=== PATIENT | female | born 1940 | race Caucasian/White ===

== ENCOUNTER → 2025-06-14 | Outpatient (CLI) | payer MEDICARE, MEDICAID, SELFPAY | END | disposition home or self-care (01) | LOC: SLDO 15:12 | PROVIDERS: PCP Internal Medicine; Referring Provider Internal Medicine; Visit Provider Internal Medicine | DX: N39.0 Urinary tract infection, site not specified (principal) | CPT/HCPCS: 87077; 87086; 87186 ==

== ENCOUNTER → 2025-06-28 | Outpatient (CLI) | payer MEDICARE, MEDICAID, SELFPAY ==
[2025-06-28 14:43] LABS: Basophils # (Auto) 0.1 Thou/mm3 (0.0-0.2); Basophils % (Auto) 1 % (0-2.5); Eosinophils # (Auto) 0.1 Thou/mm3 (0.0-0.5); Eosinophils % (Auto) 2 % (0-10); Hematocrit 38.9 % (36.0-46.0); Hemoglobin 13.4 g/dL (12.0-16.0); Immature Granulocytes Auto 0.01 Thou/mm3 (0.00-0.00); Lymphocytes # (Auto) 1.6 Thou/mm3 (1.0-4.8); Lymphocytes % (Auto) 33 % (10-50); Mean Corpuscular HGB Conc 34.4 g/dl (31.0-37.0); Mean Corpuscular Hemoglobin 31.9 pg (25.0-35.0); Mean Corpuscular Volume 93 fL (80-100); Monocytes # (Auto) 0.4 Thou/mm3 (0.0-0.8); Monocytes % (Auto) 9 % (0-12); Neutrophils # (Auto) 2.7 Thou/mm3 (1.8-7.7); Neutrophils % (Auto) 55 % (37-80); Nucleated Red Blood Cell # 0.00 Thou/mm3 (0.00-0.00); Nucleated Red Blood Cell % 0 /100 WBC (0); Platelet Count 141 Thou/mm3 (140-440); RDW Standard Deviation 45.3 fL (36.4-46.3); Red Blood Count 4.20 Miln/mm3 (4.00-5.20); White Blood Count 4.9 Thou/mm3 (3.6-11.0)
[2025-06-28 14:55] LABS: Glucose Estimated Average 91 mg/dL (80-131); Hemoglobin A1C 4.8 % Hgb (4.8-6.0)
[2025-06-28 14:58] LABS: Alanine Aminotransferase 13 U/L (10-49); Albumin, Serum 3.6 gm/dL (3.4-4.8); Albumin/Globulin Ratio 1.6 (1.2-2.2); Alkaline Phosphatase 110 U/L (46-116); Anion Gap 8 (7-16); Aspartate Amino Transferase 33 U/L (0-34); BUN/Creatinine Ratio 11 Ratio (12-20); Bilirubin,Total 1.2 mg/dL (0.3-1.2); Blood Urea Nitrogen 11 mg/dL (9-23); Calcium 9.5 mg/dL (8.3-10.6); Calcium (Corrected) 9.8 mg/dL (8.5-10.1); Carbon Dioxide 23.7 mMol/L (20.0-31.0); Cardiac Risk Estimate 3.2 RATIO (3.7-5.6); Chloride 109 mMol/L (98-107); Cholesterol 168 mg/dL (132-200); Creatinine (Component) 1.0 mg/dL (0.6-1.3); Globulin 2.3 gm/dL (2.3-3.5); Glucose 169 mg/dL (74-106); HDL Cholesterol 52 mg/dL (40-60); LDL Cholesterol,Calculated 99 mg/dL (0-130); Osmolality,Calculated 284 (275-295); Potassium 3.7 mMol/L (3.4-5.1); Sodium 141 mMol/L (136-145); Total Protein 5.9 gm/dL (5.7-8.2); Triglycerides 84 mg/dL (30-150); eGFR 55 See Note
[2025-06-28 14:59] LABS: Vitamin D 25 Hydroxy Total 105.7 ng/mL (7.3-40.2)
[2025-06-28 15:57] LABS: Collection Type, Urine Clean Catch
[2025-06-28 17:06] LABS: Amphetamine/Methamp Scrn,U Negative (Negative); Bacteria,Urine Rare; Barbiturate Screen,Urine Negative (Negative); Benzodiazepines Screen,Urine Negative (Negative); Benzoylecgonine Screen, Ur Negative (Negative); Bilirubin,Urine Negative (Negative); Blood,Urine 1+ (Negative); Clarity,Urine Clear (Clear/Hazy); Color,Urine Yellow (Lt Yel-Yel); Fentanyl Screen,Urine Negative (Negative); Glucose, Urine Negative (Negative); Hyaline Casts,Urine < 1 /hpf (0-1); Ketones,Urine Negative (Negative); Leukocyte Esterase,Urine Positive (Negative); Nitrite,Urine Negative (Negative); Opiate Screen,Urine Negative (Negative); PH,Urine 6.0 (5.0-7.0); Protein,Urine Negative (Neg - Trace); RBC,Urine 12 /hpf (0-3); Specific Gravity,Urine 1.019 (1.001-1.035); Squamous Epithelial Cell,Urine 1 /hpf (0-5); THC Screen,Urine Negative (Negative); Urobilinogen,Urine Negative mg/dL (0.0-1.0); WBC,Urine 12 /hpf (0-5)
[2025-06-28 17:08] LABS: Culture Indicated,Urine Yes
== END | disposition home or self-care (01) ==
LOC: COPL 12:52
PROVIDERS: PCP Internal Medicine; Referring Provider Internal Medicine; Visit Provider Internal Medicine
DX: Z00.01 Encounter for general adult medical examination with abnormal findings (principal); F41.9 Anxiety disorder, unspecified; E78.5 Hyperlipidemia, unspecified; E03.9 Hypothyroidism, unspecified; K21.9 Gastro-esophageal reflux disease without esophagitis; F33.9 Major depressive disorder, recurrent, unspecified; G47.00 Insomnia, unspecified; M15.0 Primary generalized (osteo)arthritis; F41.8 Other specified anxiety disorders; E55.9 Vitamin D deficiency, unspecified; N39.0 Urinary tract infection, site not specified
CPT/HCPCS: 36415; 80053; 80061; 80307; 81001; 82306; 83036; 85025; 87086

== ENCOUNTER → 2025-08-08 | Outpatient (CLI) | payer MEDICARE, MEDICAID, SELFPAY | END | disposition home or self-care (01) | LOC: SLDO 14:36 | PROVIDERS: Referring Provider Student in an Organized Health Care Education/Training Program; Visit Provider Student in an Organized Health Care Education/Training Program | DX: N39.0 Urinary tract infection, site not specified (principal) | CPT/HCPCS: 87077; 87086; 87186 ==

== ENCOUNTER 2025-08-30 15:05 | Emergency (ER) | payer OTHER, MEDICAID, SELFPAY ==
[2025-08-30 15:33] VITALS: BP 145/76; PULSE 84; RESP 20; TEMP 36.7; O2SAT 98
--- NOTE | 2025-08-30 15:36 | XR_ITS ---
EXAMINATION: CT brain and head without intravenous contrast 3D sagittal coronal reconstructions. 3D reconstructions Date and time: August 30, 2025, 1549 hours INDICATIONS: Patient fell today with injury to the head, head pain CTDI: 44.8 DLP: 875 FINDINGS: Ventricles normal size and configuration No mass effect upon the ventricular system No acute hemorrhage or mass effect Cranial vault appears intact IMPRESSION: Negative for acute hemorrhage, mass effect or midline shift
--- NOTE | 2025-08-30 15:36 | XR_ITS ---
EXAMINATION: CT thoracic spine without intravenous contrast 3D sagittal coronal reconstructions 3D reconstructions Date and time: August 30, 2025 1554 hours INDICATIONS: Ground-level fall today with injury to the upper back, upper back pain FINDINGS: Prominent osteopenia Mild chronic compression L1 No acute thoracic fracture Mild diffuse thoracic disc narrowing Pedicles and laminae appear intact 5 mm sclerotic focus T5 posterior spinous process No focal thoracic disc protrusion IMPRESSION: No acute thoracic fracture Sclerotic focus T5 posterior spinous process, consider whole body bone scan follow-up to exclude osseous metastatic disease
--- NOTE | 2025-08-30 15:36 | XR_ITS ---
EXAMINATION: Right foot 3 views TECHNIQUE: AP oblique lateral right foot 3 views Date and time: August 30, 2025, 1604 hours INDICATIONS: Ground-level fall today with injury to the foot, foot pain FINDINGS: Severe osteopenia No acute fracture No dislocation IMPRESSION: No acute fracture
--- NOTE | 2025-08-30 15:36 | XR_ITS ---
EXAMINATION: CT scan lumbar spine without intravenous contrast 2D sagittal coronal reconstructions 3D reconstructions Date and time: August 30 0-25, 1554 hours INDICATIONS: Ground-level fall today with injury to the lower back, lower back pain TECHNIQUE AND FINDINGS: Multiple axial sagittal CT lumbar spine images 2.0 mm slice thickness 2D sagittal coronal reconstructions. 3D reconstructions. FINDINGS: Severe osteopenia Adequate alignment lumbar vertebral bodies on the lateral view No lumbar vertebral body compression fracture Lumbar pedicles, laminae, transverse and posterior spinous processes appear intact 8 mm sclerotic focus in the left iliac bone 5 mm sclerotic focus L3 vertebral body L5-S1 2 mm central lumbar disc bulge L4-L5 3 mm central lumbar disc bulge IMPRESSION: No acute lumbar fracture L5-S1 2 mm central lumbar disc bulge L4-L5 3 mm central lumbar disc bulge Sclerotic foci in left iliac bone and L3 vertebral body Consider whole-body bone scan follow-up to exclude osseous metastatic disease
--- NOTE | 2025-08-30 15:36 | XR_ITS ---
EXAMINATION: Right ankle 3 views TECHNIQUE: AP oblique lateral right ankle 3 views Date and time: August 30, 2025, 1607 hours INDICATIONS: Ground-level fall today with injury to the ankle, ankle pain. FINDINGS: Healed fracture medial malleolus Severe osteopenia No acute fracture No ankle dislocation IMPRESSION: No acute fracture
--- NOTE | 2025-08-30 15:36 | XR_ITS ---
EXAMINATION: CT cervical spine without intravenous contrast. 2D sagittal coronal reconstructions. 3D reconstructions. Date and time: 1215, 2025, 1552 hours INDICATIONS: Ground-level fall today with injury to the neck, neck pain TECHNIQUE AND FINDINGS: Multiple 2.0 mm axial images cervical spine 2D sagittal coronal reconstructions 3D reconstructions CTDI 11.6 DLP 214 FINDINGS: Adequate alignment cervical vertebral bodies. No cervical fracture. Mild disc narrowing C5-C6. Intact odontoid IMPRESSION: No acute cervical fracture
--- NOTE | 2025-08-30 15:37 | XR_ITS ---
EXAMINATION: Left elbow 3 views TECHNIQUE: AP oblique lateral left elbow 3 views Date and time: August 30, 2025, 1600 hours INDICATIONS: Ground-level fall today with injury of the elbow, elbow pain. FINDINGS: No elbow fracture or dislocation. No foreign body IMPRESSION: No elbow fracture or dislocation
--- NOTE | 2025-08-30 15:38 | PD.EDRME ---
Rapid Medical Screening Exam FOR[facility], LAT[facility] Arrival date/time: 08/30/25 15:05 84-year-old female presents to the emergency department with complaints of ground-level fall patient reports left elbow pain, closed head injury, abrasions right ankle pain Chief Complaint: Head Injury Vital signs: Vital Signs Temperature 98.1 F 08/30/25 15:33 Pulse Rate 84 08/30/25 15:33 Respiratory Rate 20 08/30/25 15:33 Blood Pressure 145/76 H 08/30/25 15:33 Pulse Oximetry (%) 98 08/30/25 15:33 Oxygen Delivery Method Room Air 08/30/25 15:33
[2025-08-30] MEDS: DIPHTH,PERTUSS(ACELL),TET VAC 0.5 ML SYR- ADULT IMi (16:19)
--- NOTE | 2025-08-30 19:16 | PD.EDHEAD ---
ED Head Injury RME/HPI General Chief complaint: Head Injury Stated complaint: FALL HIT HEAD Time Seen by Provider: 08/30/25 19:21 Arrival date/time: 08/30/25 15:05 RME / HPI RME / HPI Narrative: 08/30/25 15:05 84-year-old female presents to the emergency department with complaints of ground-level fall patient reports left elbow pain, closed head injury, abrasions right ankle pain --------- Dr. Lombardi?s Main ED Evaluation: 84yo female presents to the ED for a chief complaint of a fall. Patient tripped over a piece of cement and fell. Patient hit her head, but did not lose consciousness. She complains of left elbow pain and right ankle pain. Patient denies any dizziness, lightheadedness, or any other associated symptoms. She is not on any blood thinners. NKA. Related Data Home Medications ?Medication ?Instructions ?Recorded ?Confirmed clonazepam 0.5 mg tablet 0.5 mg PO BID PRN anxiety nerve 02/24/22 02/24/22 duloxetine 30 mg capsule,delayed 30 mg PO QDAY 02/24/22 02/24/22 release ergocalciferol (vitamin D2) 1,250 1,250 mcg PO QWEEK 02/24/22 02/24/22 mcg (50,000 unit) capsule loratadine 10 mg tablet 10 mg PO QDAY 02/24/22 02/24/22 omeprazole 20 mg capsule,delayed 20 mg PO QDAY 02/24/22 02/24/22 release trazodone 50 mg tablet 50 mg PO HS PRN Insomnia 02/24/22 02/24/22 Previous Rx's ?Medication ?Instructions ?Recorded fluticasone 250 mcg-salmeterol 50 1 inh inhalation BID #60 ea 03/03/23 mcg/dose blistr powdr for inhalation (Advair Diskus) levofloxacin 500 mg tablet 500 mg PO QDAY #14 tabs 03/03/23 Allergies Allergy/AdvReac Type Severity Reaction Status Date / Time No Known Allergies Allergy Verified 08/30/25 15:11 Review of Systems Review of Systems Systems Reviewed: All systems reviewed, normal except as documented Past Medical History Past Medical History CARDIAC: Negative Congestive Heart Failure RESPIRATORY: Negative Chronic Obstructive Pulmonary Disease (COPD) GENITOURINARY: Positive Genitourinary Disorders (uti); Negative Renal Disease MUSCULOSKELETAL: Positive Arthritis and Osteoporosis ENDOCRINE: Negative Diabetes Mellitus Type 1 or Diabetes Mellitus Type 2 PSYCHO/SOCIAL: Positive Anxiety Social History SMOKING STATUS: Never smoker ED Exam Narrative Physical exam: Generally patient is alert and in no obvious distress, head normocephalic atraumatic, neck no obvious midline bony deformity or tenderness noted to cervical spine, musculoskeletal shows very mild paravertebral muscular tenderness to the thoracic and lumbar spine, extremities show very mild tenderness around the right ankle with minimal swelling. She has a very small superficial skin tear to the left elbow. Patient was seen and evaluated prior to my evaluation and radiographic studies were ordered. CAT scan of the brain was negative. CAT scan of the cervical thoracic and lumbar spine was unremarkable for fracture or dislocation. X-ray of the left elbow right foot and right ankle showed no fracture no dislocation. Patient stable for discharge. Course Quality Measures none Orders Category Date Time Status TDap [Obtain Tdap Consent] X1 Care 08/30/25 15:[address] cervical spine wo con Stat Exams 08/30/25 15:[address] head/brain wo con Stat Exams 08/30/25 15:[address] lumbar spine wo con Stat Exams 08/30/25 15:[address] thoracic spine wo con Stat Exams 08/30/25 15:36 Completed XR ankle comp RT min 3V Stat Exams 08/30/25 15:36 Completed XR elbow comp LT min 3V Stat Exams 08/30/25 15:37 Completed XR foot comp RT min 3V Stat Exams 08/30/25 15:36 Completed TET,DIP/PERT AC (Adult)-Tdap [Boostrix Adult (Tdap) Med 08/30/25 15:37 Discontinued Vacc] 0.5 ml IMI .ONCE ONE Vital Signs Vital signs: Vital Signs Temperature 98.1 F 08/30/25 15:33 Pulse Rate 84 08/30/25 15:33 Respiratory Rate 20 08/30/25 15:33 Blood Pressure 145/76 H 08/30/25 15:33 Pulse Oximetry (%) 98 08/30/25 15:33 Oxygen Delivery Method Room Air 08/30/25 15:33 Head Injury MDM Narrative MDM Narrative:: Scribe Attestation: 08/30/25 - Mi Multani am scribing for and in the presence of Dr. Lombardi. Patient data External records reviewed:: [facility] previous records (Per chart review, patient was seen here on 03/03/23 for UTI.) Clinical information provided by:: patient Social determinants that could affect healthcare access:: none Patient has the following chronic illnesses:: none How is presenting disease/condition affected by chronic disease/condition?: no chronic disease Evaluation data The following diagnostics were reviewed and interpreted by me:: radiology exam(s) Lab and/or radiology exams considered but not ordered:: none Interpretation Summary: [facility] Report Signed Patient: ROXY ENGLISH [facility]. Record#: [id number] Birthdate: 1940 Age/Sex: 84 / F Location: [facility] Attending Dr: Ordering Physician: Simba ADORNO)Lorenzo NP Date of Service: 08/30/25 Procedure(s): XR elbow comp LT min 3V Accession Number(s): [id number] cc: Torsten Brown PA-C; Simba ADORNO)Lorenzo NP; Parviz Santos MD~ EXAMINATION: Left elbow 3 views TECHNIQUE: AP oblique lateral left elbow 3 views Date and time: August 30, 2025, 1600 hours INDICATIONS: Ground-level fall today with injury of the elbow, elbow pain. FINDINGS: No elbow fracture or dislocation. No foreign body IMPRESSION: No elbow fracture or dislocation Dictated By: Parviz Santos MD Signed By: <Electronically signed by Parviz Santos MD in OV> 08/30/25 1636 [facility] Report Signed Patient: ROXY ENGLISH [facility]. Record#: [id number] Birthdate: 1940 Age/Sex: 84 / F Location: [facility] Attending Dr: Ordering Physician: Lorenzo Cottrell NP, NP Date of Service: 08/30/25 Procedure(s): CT thoracic spine wo con Accession Number(s): [id number] cc: Torsten Brown PA-C; Simba ADORNO)Lorenzo NP; Parviz Santos MD~ EXAMINATION: CT thoracic spine without intravenous contrast 3D sagittal coronal reconstructions 3D reconstructions Date and time: August 30, 2025 1554 hours INDICATIONS: Ground-level fall today with injury to the upper back, upper back pain FINDINGS: Prominent osteopenia Mild chronic compression L1 No acute thoracic fracture Mild diffuse thoracic disc narrowing Pedicles and laminae appear intact 5 mm sclerotic focus T5 posterior spinous process No focal thoracic disc protrusion IMPRESSION: No acute thoracic fracture Sclerotic focus T5 posterior spinous process, consider whole body bone scan follow-up to exclude osseous metastatic disease Dictated By: Parviz Santos MD Signed By: <Electronically signed by Parviz Santos MD in OV> 08/30/25 1622 [facility] Report Signed Patient: ROXY ENGLISH. Record#: [id number] Birthdate: 1940 Age/Sex: 84 / F Location: [facility] Attending Dr: Ordering Physician: Simba (ANU),Lorenzo BRENNAN Date of Service: 08/30/25 Procedure(s): CT lumbar spine wo con Accession Number(s): [id number] cc: Torsten Brown PA-C; Simba (ANU),Lorenzo BRENNAN; Parviz Santos MD~ EXAMINATION: CT scan lumbar spine without intravenous contrast 2D sagittal coronal reconstructions 3D reconstructions Date and time: August 30 1554 hours INDICATIONS: Ground-level fall today with injury to the lower back, lower back pain TECHNIQUE AND FINDINGS: Multiple axial sagittal CT lumbar spine images 2.0 mm slice thickness 2D sagittal coronal reconstructions. 3D reconstructions. FINDINGS: Severe osteopenia Adequate alignment lumbar vertebral bodies on the lateral view No lumbar vertebral body compression fracture Lumbar pedicles, laminae, transverse and posterior spinous processes appear intact 8 mm sclerotic focus in the left iliac bone 5 mm sclerotic focus L3 vertebral body L5-S1 2 mm central lumbar disc bulge L4-L5 3 mm central lumbar disc bulge IMPRESSION: No acute lumbar fracture L5-S1 2 mm central lumbar disc bulge L4-L5 3 mm central lumbar disc bulge Sclerotic foci in left iliac bone and L3 vertebral body Consider whole-body bone scan follow-up to exclude osseous metastatic disease Dictated By: Parviz Santos MD Signed By: <Electronically signed by Parviz Santos MD in OV> 08/30/25 1620 [facility] Report Signed Patient: ROXY ENGLISH [facility]. Record#: [id number] Birthdate: 1940 Age/Sex: 84 / F Location: [facility] Attending Dr: Ordering Physician: Simba ADORNO)Lorenzo NP Date of Service: 08/30/25 Procedure(s): CT head/brain wo con Accession Number(s): [id number] cc: Torsten Brown PA-C; Lorenzo Cottrell NP, NP; Parviz Santos MD~ EXAMINATION: CT brain and head without intravenous contrast 3D sagittal coronal reconstructions. 3D reconstructions Date and time: August 30, 2025, 1549 hours INDICATIONS: Patient fell today with injury to the head, head pain CTDI: 44.8 DLP: 875 FINDINGS: Ventricles normal size and configuration No mass effect upon the ventricular system No acute hemorrhage or mass effect Cranial vault appears intact IMPRESSION: Negative for acute hemorrhage, mass effect or midline shift Dictated By: Parviz Santos MD Signed By: <Electronically signed by Parviz Santos MD in OV> 08/30/251628 [facility] Report Signed Patient: ROXY ENGLISH [facility]. Record#: [id number] Birthdate: 1940 Age/Sex: 84 / F Location: [facility] Attending Dr: Ordering Physician: Simba ADORNO)Lorenzo NP Date of Service: 08/30/25 Procedure(s): XR foot comp RT min 3V Accession Number(s): [id number] cc: Torsten Brown PA-C; Lorenzo Cottrell NP, NP; Parviz Santos MD~ EXAMINATION: Right foot 3 views TECHNIQUE: AP oblique lateral right foot 3 views Date and time: August 30, 2025, 1604 hours INDICATIONS: Ground-level fall today with injury to the foot, foot pain FINDINGS: Severe osteopenia No acute fracture No dislocation IMPRESSION: No acute fracture Dictated By: Parviz Santos MD Signed By: <Electronically signed by Parviz Santos MD in OV> 08/30/25 1624 [facility] Report Signed Patient: ROX[place] ENGL[place] [facility]. Record#: [id number] Birthdate: 1940 Age/Sex: 84 / F Location: [facility] Attending Dr: Ordering Physician: Simba ADORNO)Lorenzo NP Date of Service: 08/30/25 Procedure(s): CT cervical spine wo con Accession Number(s): [id number] cc: Torsten Brown PA-C; Lorenzo Cottrell NP, NP; Parviz Santos MD~ EXAMINATION: CT cervical spine without intravenous contrast. 2D sagittal coronal reconstructions. 3D reconstructions. Date and time: 2024, 1552 hours INDICATIONS: Ground-level fall today with injury to the neck, neck pain TECHNIQUE AND FINDINGS: Multiple 2.0 mm axial images cervical spine 2D sagittal coronal reconstructions 3D reconstructions CTDI 11.6 DLP 214 FINDINGS: Adequate alignment cervical vertebral bodies. No cervical fracture. Mild disc narrowing C5-C6. Intact odontoid IMPRESSION: No acute cervical fracture Dictated By: Parviz Santos MD Signed By: <Electronically signed by Parviz Santos MD in OV> 08/30/25 1626 [facility] Report Signed Patient: ROXY ENGLISH [facility]. Record#: [id number] Birthdate: 1940 Age/Sex: 84 / F Location: [facility] Attending Dr: Ordering Physician: Lorenzo Cottrell NP, NP Date of Service: 08/30/25 Procedure(s): XR ankle comp RT min 3V Accession Number(s): [id number] cc: Torsten Brown PA-C; Lorenzo Cottrell NP, NP; Parviz Santos MD~ EXAMINATION: Right ankle 3 views TECHNIQUE: AP oblique lateral right ankle 3 views Date and time: August 30, 2025, 1607 hours INDICATIONS: Ground-level fall today with injury to the ankle, ankle pain. FINDINGS: Healed fracture medial malleolus Severe osteopenia No acute fracture No ankle dislocation IMPRESSION: No acute fracture \ Dictated By: Parviz Santos MD Signed By: <Electronically signed by Parviz Santos MD in OV> 08/30/25 1623 Medications / Prescriptions Medications or Prescriptions considered but not ordered:: none Medication administrations:: Medication Administration History Discontinued Medications Diphtheria/Tetanus/Acell Pertussis (Diphth,Pertuss(Acell),Tet Vac 0.5 Ml Syr- Adult) 0.5 ml IMi .ONCE ONE Stop: 08/30/25 15:38 Last Admin: 08/30/25 16:19 Dose: 0.5 ml Documented By: EF see above Consultations Consultation(s) initiated? (list below): No Diagnosis Differential diagnosis head injury: other (See MDM.) Most likely diagnosis given after review of the tests above:: see clinical impression below Admission Indicated Admission indicated?: not indicated Admission Request Was there a request for admission?: No Disposition Plan Disposition Plan: Discharge Discharge Attestation Discharge Attestation: The patient and all family members were given an opportunity to ask questions and understood the discharge instructions. Discharge instructions specifically effects, indications for sooner follow up or return to the emergency department, and the expected course of current diagnosis. Patient condition: Stable Discharge Plan Plan Patient Disposition: HOME (Self Care) Prescriptions/Referrals Prescriptions/Med Rec: No Action trazodone 50 mg tablet 50 mg PO HS PRN (Reason: Insomnia) Patient Comments: TAKE 1 TABLET BY MOUTH EVERY DAY AT BEDTIME NEEDED FOR INSOMNIA clonazepam 0.5 mg tablet 0.5 mg PO BID PRN (Reason: anxiety nerve) Patient Comments: TAKE 1/2 TO 1 TABLET BY MOUTH TWICE A DAY NEEDED FOR ANXIETY OR NERVES omeprazole 20 mg capsule,delayed release(DR/EC) 20 mg PO QDAY ergocalciferol (vitamin D2) 1,250 mcg (50,000 unit) capsule 1,250 mcg PO QWEEK Patient Comments: TAKE 1 CAPSULE BY MOUTH EVERY THURSDAY loratadine 10 mg tablet 10 mg PO QDAY Patient Comments: TAKE 1 TABLET BY MOUTH EVERY DAY FOR 30 DAYS duloxetine 30 mg capsule,delayed release(DR/EC) 30 mg PO QDAY Patient Comments: TAKE 1 CAPSULE BY MOUTH EVERY DAY FOR DEPRESSION fluticasone propion-salmeterol [Advair Diskus] 250-50 mcg/dose blister with device 1 inh inhalation BID Qty: 60 0RF levofloxacin 500 mg tablet 500 mg PO QDAY Qty: 14 0RF Referrals: Torsten Brown PA-C [Primary Care Provider] - In 1 week Problem List Clinical Impression: Fall, Musculoskeletal pain Patient/Caregiver Discharge Instructions Additional Instructions: You may take Tylenol for pain. You will be sore for the next 1 to 2 days. Apply warmth to painful areas. Follow-up with your doctor as needed. Print Language: Occitan Stand Alone Forms: [facility] Award Info., Patient Portal Info Letter
== END 2025-08-30 19:43 | disposition home or self-care (01) ==
PROVIDERS: Emergency Provider Emergency Medicine; PCP Student in an Organized Health Care Education/Training Program
DX: S09.90XA Unspecified injury of head, initial encounter (principal); S59.909A Unspecified injury of unspecified elbow, initial encounter; S90.511A Abrasion, right ankle, initial encounter; M51.360 Other intervertebral disc degeneration, lumbar region with discogenic back pain only; M51.379 Other intervertebral disc degeneration, lumbosacral region without mention of lumbar back pain or lower extremity pain; S99.921A Unspecified injury of right foot, initial encounter; Z79.51 Long term (current) use of inhaled steroids; W01.0XXA Fall on same level from slipping, tripping and stumbling without subsequent striking against object, initial encounter; S99.922A Unspecified injury of left foot, initial encounter
CPT/HCPCS: 70450; 72125; 72128; 72131; 73080; 73610; 73630; 90471; 90715; 99283

== ENCOUNTER → 2025-08-31 | Outpatient (CLI) | payer OTHER, SELFPAY | END | disposition home or self-care (01) | LOC: COPL 14:32 → SLDO 14:34 | PROVIDERS: PCP Student in an Organized Health Care Education/Training Program; Referring Provider Student in an Organized Health Care Education/Training Program; Visit Provider Student in an Organized Health Care Education/Training Program | DX: N39.0 Urinary tract infection, site not specified (principal) | CPT/HCPCS: 87086 ==

== ENCOUNTER → 2025-09-19 | Outpatient (CLI) | payer MEDICARE, MEDICAID, SELFPAY ==
--- NOTE | 2025-09-19 13:00 | XR_ITS ---
Examination: CT abdomen and pelvis without contrast. Coronal 3-D reconstructions. Sagittal 2-D reconstructions. Date and time of exam: September 19, 2025, 1258 hours INDICATIONS: Abdominal pain months CTDI: vol (mGy): 7.22 DLP: (mGycm): 355 Technique: Axial images of the abdomen have been obtained, 3 mm slice thickness Intravenous contrast material has not been administered. Low dose protocols were performed. One or more of the following dose reduction techniques were used; automated exposure control, adjustment of the mA and/or KV according to patient size, use of iterative reconstruction technique. Findings: Liver is irregular in contour Splenic calcifications Absent gallbladder. No pancreatic mass 31 mm anterior left renal cyst No renal or ureteral calculi Aorta normal size No bowel obstruction No pericecal inflammatory change No diverticulitis Contracted urinary bladder Absent uterus Prominent osteopenia IMPRESSION: No extrahepatic biliary tract dilatation No renal or ureteral calculi, no hydronephrosis No CT findings of appendicitis bowel obstruction or diverticulitis
== END | disposition home or self-care (01) ==
LOC: CCTX 12:52
PROVIDERS: PCP Family Medicine; Referring Provider Student in an Organized Health Care Education/Training Program; Visit Provider Student in an Organized Health Care Education/Training Program
DX: R10.9 Unspecified abdominal pain (principal)
CPT/HCPCS: 74176